=== PATIENT | female | born 1940 ===

== ENCOUNTER → 2021-07-30 08:53 | Outpatient (BNVA) | payer MEDICARE, SELFPAY | PROVIDERS: PCP Physical Medicine & Rehabilitation; Visit Provider Internal Medicine | DX: M62.838 Other muscle spasm (principal); M47.814 Spondylosis without myelopathy or radiculopathy, thoracic region; M54.14 Radiculopathy, thoracic region | CPT/HCPCS: 99202 ==

== ENCOUNTER → 2021-10-04 16:00 | Outpatient (BNVA) | payer MEDICARE, SELFPAY | PROVIDERS: PCP Physical Medicine & Rehabilitation; Visit Provider Internal Medicine | DX: M54.14 Radiculopathy, thoracic region (principal); M62.838 Other muscle spasm | CPT/HCPCS: Q3014 ==